=== PATIENT | male | born 1955 | race Caucasian/White ===

== ENCOUNTER 2018-10-24 22:12 | Inpatient (IN) | payer OTHER ==
[2018-10-24] MEDS ORDERED: Pantoprazole 40 MG Vial IVPUSH ONE (22:43)
--- NOTE | 2018-10-24 22:53 | EDM.PDOC ---
ED HPI GENERAL MEDICAL PROBLEM - General Chief Complaint: Gastrointestinal Problem Stated Complaint: [facility] Time Seen by Provider: 10/24/18 22:23 Source of Information: Reports: Patient, Family (), RN Notes Reviewed History Limitations: Reports: No Limitations - History of Present Illness INITIAL COMMENTS - FREE TEXT/NARRATIVE: The patient states that he felt bloated earlier today. He states that he went to the bathroom, but does not think he made it to the toilet. He was found passed out on the bathroom floor, with a large amount of dark bloody stool on the floor, although some blood was found in the toilet, as well, indicating that he may have passed out while on the toilet. The patient does not remember that. The patient's stated that the patient was in and out of consciousness at home. EMS reported that he was pale and diaphoretic. Here in the ED, the patient's initial BP was 86/53, although he is not tachycardic. He denies feeling nauseated, and denies having abdominal pain. No prior similar symptoms. The patient has a history of GERD, esophageal ulcers, and presumed gout, but is currently only taking iron, Crestor, and levothyroxine. He denies taking an NSAID, and is not on an antacid. The patient's PCP is Maryanne Pavon. - Related Data Allergies Allergy/AdvReac Type Severity Reaction Status Date / Time No Known Allergies Allergy Verified 10/24/18 22:20 Home Meds: Home Meds Famotidine [Pepcid] 20 mg PO DAILY 10/24/18 [History] Indomethacin [Indocin] 50 mg PO BID PRN 10/24/18 [History] Iron. 1 tab PO DAILY 10/24/18 [History] Levothyroxine Sodium 1 tab PO DAILY 10/24/18 [History] Rosuvastatin Calcium 5 mg PO DAILY 10/24/18 [History] Past Medical History Cardiovascular History: Reports: High Cholesterol Gastrointestinal History: Reports: Colon Polyp, GERD, Other (See Below) ( Esophageal ulcers) Genitourinary History: Reports: Chronic Renal Insuffiency, Renal Calculus Musculoskeletal History: Reports: Arthritis, Gout (suspected) Endocrine/Metabolic History: Reports: Hypothyroidism, Other (See Below) ( Prediabetes) - Past Surgical History HEENT Surgical History: Reports: Eye Surgery (bilateral lid lift), Oral Surgery (wisdom teeth extraction) GI Surgical History: Reports: Colonoscopy (x 2), EGD (x 4 or 5), Hernia, Abdominal (paraumbilical x 1, abdominal wall x 2) Social & Family History - Tobacco Use Smoking Status *Q: Never Smoker - Caffeine Use Caffeine Use: Reports: Coffee - Alcohol Use Alcohol Use History: Yes Alcohol Use Frequency: Socially - Recreational Drug Use Recreational Drug Use: No - Living Situation & Occupation Living situation: Reports: , with Spouse Occupation: Employed (Insurance) ED ROS GENERAL - Review of Systems Review Of Systems: ROS reveals no pertinent complaints other than HPI. ED EXAM, GI/ABD - Physical Exam Exam: See Below Exam Limited By: No Limitations General Appearance: Alert, WD/WN, No Apparent Distress Eyes: Bilateral: Normal Appearance, EOMI Ears: Normal External Exam, Hearing Grossly Normal Nose: Normal Inspection Throat/Mouth: Normal Inspection, Normal Lips, Normal Voice, No Airway Compromise Head: Atraumatic, Normocephalic Neck: Normal Inspection, Full Range of Motion Respiratory/Chest: No Respiratory Distress, Lungs Clear, Normal Breath Sounds, No Accessory Muscle Use Cardiovascular: Normal Peripheral Pulses, Regular Rate, Rhythm, No Gallop, No JVD, No Murmur, No Rub GI/Abdominal Exam: Normal Bowel Sounds, Soft, Non-Tender, No Organomegaly, No Distention, No Abnormal Bruit, No Mass, Other (Obese) (Male) Exam: Deferred Rectal (Males) Exam: Deferred Back Exam: Normal Inspection, Full Range of Motion, NT Extremities: Normal Inspection, Normal Range of Motion, Normal Capillary Refill Neurological: Alert, Oriented, Normal Cognition, No Motor/Sensory Deficits Psychiatric: Normal Affect Skin Exam: Warm, Dry, Intact, Normal Color, No Rash EKG INTERPRETATION EKG Date: 10/24/18 Time: 22:44 Rhythm: NSR Rate (Beats/Min): 63 Cornell: 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) P-Wave: Present QRS: Normal ST-T: Normal QT: Normal Comparison: NA - No Prior EKG Course - Vital Signs Last Recorded V/S: Last Vital Signs Temp 36.2 C 10/24/18 22:17 Pulse 67 10/24/18 22:17 Resp 16 10/24/18 22:17 BP 86/53 L 10/24/18 22:17 Pulse Ox 92 L 10/24/18 22:17 - Orders/Labs/Meds Orders: Active Orders 24 hr Category Date Time Status EKG Documentation Completion [RC] STAT Care 10/24/18 22:26 Active Chest 1V Frontal [CR] Stat Exams 10/24/18 22:50 Taken CBC WITH MANUAL DIFF [HEME] Stat Lab 10/24/18 22:40 Results FRESH FROZEN PLASMA [BBK] Stat Lab 10/24/18 22:40 Results RED BLOOD CELLS LP [BBK] Stat Lab 10/24/18 22:40 Results TYPE AND SCREEN [BBK] Stat Lab 10/24/18 22:40 Results Lactated Ringers [Ringers, Lactated] 1,000 ml Med 10/24/18 23:00 Active IV ASDIRECTED Pantoprazole [ProTONIX IV] 80 mg Med 10/24/18 22:45 Active Sodium Chloride 0.9% [Normal Saline] 100 ml IV Q10H Transfuse Fresh Frozen Plasma [COMM] Stat Ot 10/24/18 22:42 Ordered Transfuse PRBC [Transfuse Red Blood Cells] [COMM] Stat Oth 10/24/18 22:26 Ordered Medication Orders Pantoprazole Sodium 80 mg/ (Sodium Chloride) 100 mls @ 10 mls/hr IV Q10H [facility] Last Admin: 10/24/18 23:04 Dose: 8 mg/hr, 10 mls/hr Lactated Ringer's (Ringers, Lactated) 1,000 mls @ 150 mls/hr IV ASDIRECTED [facility] Last Admin: 10/24/18 23:03 Dose: 150 mls/hr Labs: Laboratory Tests 10/24/18 10/24/18 10/24/18 Range/Units 22:40 22:40 22:40 WBC 10.47 H (4.23-9.07) K/mm3 RBC 4.00 L (4.63-6.08) M/mm3 Hgb 11.2 L (13.7-17.5) gm/L Hct 34.4 L (40.1-51.0) % MCV 86.0 (79.0-92.2) fl MCH 28.0 (25.7-32.2) pg MCHC 32.6 (32.2-35.5) g/dl RDW Std Deviation 42.6 (35.1-43.9) fL Plt Count 357 H (163-337) K/mm3 MPV 9.8 (9.4-12.3) fl PT 12.6 H (9.5-12.1) SECONDS INR 1.16 APTT 21 L (24-31) SECONDS Sodium 142 (136-145) mEq/L Potassium 3.5 (3.5-5.1) mEq/L Chloride 108 H (98-107) mEq/L Carbon Dioxide 21 (21-32) mEq/L Anion Gap 16.5 H (5-15) BUN 34 H (7-18) mg/dL Creatinine 1.6 H (0.7-1.3) mg/dL Est Cr Clr Drug Dosing 53.41 mL/min Estimated GFR (MDRD) 44 (>60) mL/min BUN/Creatinine Ratio 21.3 H (14-18) Glucose 173 H (80-115) mg/dL Calcium 8.9 (8.5-10.1) mg/dL Magnesium 1.6 L (1.8-2.4) mg/dl Total Bilirubin 0.4 (0.2-1.0) mg/dL AST 17 (15-37) U/L ALT 23 (16-63) U/L Alkaline Phosphatase 45 L (46-116) U/L Troponin I < 0.017 (0.00-0.056) ng/mL Total Protein 6.0 L (6.4-8.2) g/dl Albumin 3.1 L (3.4-5.0) g/dl Globulin 2.9 gm/dL Albumin/Globulin Ratio 1.1 (1-2) Blood Type Gel Antibody Screen Crossmatch 10/24/18 Range/Units 22:40 WBC (4.23-9.07) K/mm3 RBC (4.63-6.08) M/mm3 Hgb (13.7-17.5) gm/L Hct (40.1-51.0) % MCV (79.0-92.2) fl MCH (25.7-32.2) pg MCHC (32.2-35.5) g/dl RDW Std Deviation (35.1-43.9) fL Plt Count (163-337) K/mm3 MPV (9.4-12.3) fl PT (9.5-12.1) SECONDS INR APTT (24-31) SECONDS Sodium (136-145) mEq/L Potassium (3.5-5.1) mEq/L Chloride (98-107) mEq/L Carbon Dioxide (21-32) mEq/L Anion Gap (5-15) BUN (7-18) mg/dL Creatinine (0.7-1.3) mg/dL Est Cr Clr Drug Dosing mL/min Estimated GFR (MDRD) (>60) mL/min BUN/Creatinine Ratio (14-18) Glucose (80-115) mg/dL Calcium (8.5-10.1) mg/dL Magnesium (1.8-2.4) mg/dl Total Bilirubin (0.2-1.0) mg/dL AST (15-37) U/L ALT (16-63) U/L Alkaline Phosphatase (46-116) U/L Troponin I (0.00-0.056) ng/mL Total Protein (6.4-8.2) g/dl Albumin (3.4-5.0) g/dl Globulin gm/dL Albumin/Globulin Ratio (1-2) Blood Type O POSITIVE Gel Antibody Screen Negative Crossmatch See Detail Meds: Medications Generic Name Dose Route Start Last Admin Trade Name Freq PRN Reason Stop Dose Admin Pantoprazole Sodium 80 mg/ 100 mls @ 10 mls/hr 10/24/18 22:45 10/24/18 23:04 Sodium Chloride IV 8 mg/hr Q10H DEE 10 mls/hr Administration 8 MG/HR Lactated Ringer's 1,000 mls @ 150 mls/hr 10/24/18 23:00 10/24/18 23:03 Ringers, Lactated IV 150 mls/hr ASDIRECTED DEE Administration Discontinued Medications Generic Name Dose Route Start Last Admin Trade Name Freq PRN Reason Stop Dose Admin Pantoprazole Sodium 80 mg 10/24/18 22:43 10/24/18 22:48 Protonix Iv IVPUSH 10/24/18 22:44 80 mg BOLUS ONE Administration - Re-Assessments/Exams Free Text/Narrative Re-Assessment/Exam: 10/24/18 22:50 Because the patient was and is so hypotensive, I am concerned that the patient has bled a considerable amount, therefore I have ordered 2 units of packed red blood cells, the first to be given as Type O, the second unit be typed and crossed, along with one unit of fresh frozen plasma. I have ordered Protonix 80 mg IVP, to be followed by 8 mg per hour drip. I have ordered lactated Ringer's at 150 mL per hour. Case then discussed with Dr. Aguila at 22:44. She does not feel that the patient needs emergency endoscopy unless there is evidence that he is still bleeding. So long as the patient is not complaining of nausea, she is not recommending a NG tube, however, if the patient develops nausea or hematemesis, then a NG tube should be placed. She asked that I order an imaging study to make sure that there is no free air. She agreed with the blood, fresh frozen plasma, Protonix, and IV fluid. She asked that we place the patient into observation under the Hospitalist, with her on consult. 10/24/18 23:26 Portable chest radiograph reviewed. Limited quality study, taken in expiration. The cardiac silhouette appears to be within normal limits. No pulmonary vascular congestion. No pleural effusions seen on this AP view. No focal infiltrate. No pneumothorax. No free air seen. Formal read per the Radiologist pending. 10/24/18 23:52 The patient's BUN/Cr has returned elevated at 34/1.6. It was 17/1.5 on 2017, indicating that the patient has chronic renal insufficiency. I will update his PMHx. The patient's blood glucose is elevated at 173. No prior evidence of hyperglycemia, indicating that the patient has prediabetes. I will update his PMHx. The patient's magnesium has returned mildly depressed at 1.6. I would like to give him a 1 g Mg-rider, however, his IVs are currently being used for the other transfusions, so this will have to wait. 10/25/18 00:02 Test results discussed with the patient, his , and 2 daughters, who are all at the bedside. Based on the patient's history, primarily, I strongly suspect that the patient has an upper GI bleed. I explained that I would prefer to place a NG tube, which not only can confirm that the patient has an upper GI bleed, but also help determine if he is continuing to bleed, or rebleeds, however, the patient declined a NG tube, at least at this time. The patient and his family are agreeable to the patient being admitted to the ICU. 10/25/18 00:[address] Mcclure at 00:04. He agreed to admit the patient to the ICU, and asked that I write bridge orders. Departure - Departure Time of Disposition: 00:08 Disposition: Admitted As Inpatient 66 Condition: Serious Clinical Impression: Upper GI bleed, Chronic renal insufficiency, Prediabetes, Hypomagnesemia, Hypotension - Discharge Information *PRESCRIPTION DRUG MONITORING PROGRAM REVIEWED*: Not Applicable *COPY OF PRESCRIPTION DRUG MONITORING REPORT IN PATIENT SUKI: Not Applicable Referrals: Maryanne Pavon PA-C [Primary Care Provider] - - My Orders Last 24 Hours: My Active Orders 10/24/18 22:26 EKG Documentation Completion [RC] STAT Transfuse PRBC [Transfuse Red Blood Cells] [COMM] Stat 10/24/18 22:40 CBC WITH MANUAL DIFF [HEME] Stat FRESH FROZEN PLASMA [BBK] Stat RED BLOOD CELLS LP [BBK] Stat TYPE AND SCREEN [BBK] Stat 10/24/18 22:42 Transfuse Fresh Frozen Plasma [COMM] Stat 10/24/18 22:45 Pantoprazole [ProTONIX IV] 80 mg Sodium Chloride 0.9% [Normal Saline] 100 ml IV Q10H 10/24/18 22:50 Chest 1V Frontal [CR] Stat 10/24/18 23:00 Lactated Ringers [Ringers, Lactated] 1,000 ml IV ASDIRECTED - Assessment/Plan Last 24 Hours: My Active Orders 10/24/18 22:26 EKG Documentation Completion [RC] STAT Transfuse PRBC [Transfuse Red Blood Cells] [COMM] Stat 10/24/18 22:40 CBC WITH MANUAL DIFF [HEME] Stat FRESH FROZEN PLASMA [BBK] Stat RED BLOOD CELLS LP [BBK] Stat TYPE AND SCREEN [BBK] Stat 10/24/18 22:42 Transfuse Fresh Frozen Plasma [COMM] Stat 10/24/18 22:45 Pantoprazole [ProTONIX IV] 80 mg Sodium Chloride 0.9% [Normal Saline] 100 ml IV Q10H 10/24/18 22:50 Chest 1V Frontal [CR] Stat 10/24/18 23:00 Lactated Ringers [Ringers, Lactated] 1,000 ml IV ASDIRECTED
[2018-10-24] MEDS: Lactated Ringers 1,000 ML IV SCH (23:03)
[2018-10-24] MEDS: Pantoprazole 80 MG in Sodium Chloride 0.9% 100 ML IV SCH (23:04)
[2018-10-25] MEDS: Lactated Ringers 1,000 ML IV SCH (06:08)
--- NOTE | 2018-10-25 08:07 | PCM.HP ---
H&P History of Present Illness - General Date of Service: 10/25/18 Admit Problem/Dx: Admission Diagnosis/Problem Admission Diagnosis/Problem GI bleed requiring more than 4 units of blood in 24 hours, ICU, or surgery Source of Information: Patient, Family, Provider, RN Notes Reviewed History Limitations: Reports: No Limitations - History of Present Illness Initial Comments - Free Text/Narative: This is a 63 yo white male with past medical hx/o HLD, GERD, PUD, Hx/o Gout, SAUD , CKD Unknown Stage, Hx/o Renal Stone, OA, Hypothyroidism, and Pre-Diabetes who comes in for evaluation of GI complaints after passing out while he was in the bathroom yesterday. He reports feeling bloated so he went to the bathroom to have a bowel movement. However he was found unconscious on the floor with a large amount of dark bloody stool on the floor but some was found on the toilet as well. The patient however does not recall the the ensuing event. Per ED notes , he was in and out of consciousness according to his . At the time EMS arrived at his place, he was pale and diaphoretic. His initial documented blood pressure upon presentation to ED was 86/53 mmHg. Patient reports no prior similar symptoms in the past. His initial work up in ED shows a CBC remarkable for WBC of 10.47, RBC of 4, Hgb of 11.2, Hct of 34.4, Platelet of 357, and Neutrophils of 65%. His coagulation studies show PT of 12.6, INR of 1.16, and aPTT of 21. His Chemistry is significant for Cl of 108, AG of 16.5, BUN of 34, Cr of 1.6, BS of 173, Mg of 1.6, Alk Phos of 1.6, Total Protein of 6 and Albumin of 3.1. His chest x-ray shows no acute abnormal findings. Patient was admitted overnight for further work up of acute GI bleed. He is full code. - Related Data Allergies/Adverse Reactions: Allergies Allergy/AdvReac Type Severity Reaction Status Date / Time No Known Allergies Allergy Verified 10/25/18 03:00 Home Medications: Home Meds Iron. 1 tab PO DAILY 10/24/18 [History] Levothyroxine Sodium 1 tab PO DAILY 10/24/18 [History] Rosuvastatin Calcium 5 mg PO DAILY 10/24/18 [History] Fish Oil/[place]-3 Fatty Acids [Fish Oil 1,000 MG] 1 cap PO DAILY 10/25/18 [ History] Flaxseed Oil [Flax Oil] 1 cap PO DAILY 10/25/18 [History] Past Medical History Cardiovascular History: Reports: High Cholesterol Gastrointestinal History: Reports: Colon Polyp, GERD, Other (See Below) ( Esophageal ulcers) Other Gastrointestinal History: ulcer Genitourinary History: Reports: Chronic Renal Insuffiency, Renal Calculus Musculoskeletal History: Reports: Arthritis, Gout (suspected) Endocrine/Metabolic History: Reports: Hypothyroidism, Other (See Below) ( Prediabetes) - Past Surgical History HEENT Surgical History: Reports: Eye Surgery (bilateral lid lift), Oral Surgery (wisdom teeth extraction) GI Surgical History: Reports: Colonoscopy (x 2), EGD (x 4 or 5), Hernia, Abdominal (paraumbilical x 1, abdominal wall x 2) Social & Family History - Tobacco Use Smoking Status *Q: Never Smoker Second Hand Smoke Exposure: No - Caffeine Use Caffeine Use: Reports: Coffee, Soda - Recreational Drug Use Recreational Drug Use: No - Living Situation & Occupation Living situation: Reports: , with Spouse Occupation: Employed (Insurance) H&P Review of Systems - Review of Systems: Review Of Systems: See Below General: Denies: Fever, Chills, Malaise, Weakness, Fatigue HEENT: Reports: No Symptoms. Denies: Other Pulmonary: Denies: Shortness of Breath, Hemoptysis Cardiovascular: Reports: Syncope, Blood Pressure Problem. Denies: Chest Pain, Palpitations, Dyspnea on Exertion, Lightheadedness Gastrointestinal: Reports: Black Stool, Bloody Stool, Hematochezia, Melena. Denies: Abdominal Pain, Constipation, Diarrhea, Decreased Appetite, Difficulty Swallowing, Distension, Flatus, Hematemesis, Nausea, Stool Incontinence Genitourinary: Denies: No Symptoms, Frequency Musculoskeletal: Reports: No Symptoms Skin: Reports: Pallor, Other (diaphoretic). Denies: Cyanosis, Jaundice, Mottled , Diaphoresis, Bruising, Pruritis, Rash, Change in Color Psychiatric: Denies: Confusion, Depression, Mood Lability, Anxiety, Agitation, Hallucinations, Suicidal Ideation, Homicidal Ideation Neurological: Reports: Syncope. Denies: Confusion, Dizziness, Headache, Numbness, Seizure, Difficulty Walking, Weakness, Gait Disturbance Hematologic/Lymphatic: Reports: Anemia Immunologic: Reports: No Symptoms Exam - Exam Exam: See Below - Vital Signs Vital Signs: Last Vital Signs Temp 36.9 C 10/25/18 04:00 Pulse 63 10/25/18 04:01 Resp 20 10/25/18 04:01 BP 145/86 H 10/25/18 04:01 Pulse Ox 96 10/25/18 04:01 Weight: 99.79 kg - Exam General: Alert, Oriented, Cooperative. No: Mild Distress HEENT: Conjunctiva Clear, EACs Clear, EOMI, Hearing Intact, Mucosa Moist & [place] , Nares Patent, Normal Nasal Septum, Posterior Pharynx Clear, Pupils Equal, Pupils Reactive Neck: Supple, Trachea Midline Lungs: Clear to Auscultation, Normal Respiratory Effort Cardiovascular: Regular Rate, Regular Rhythm GI/Abdominal Exam: Normal Bowel Sounds, Soft, Non-Tender, No Organomegaly, No Distention, No Abnormal Bruit, No Mass (Male) Exam: Deferred Rectal (Males) Exam: Deferred Back Exam: Normal Inspection, Full Range of Motion Extremities: Normal Inspection, Normal Range of Motion, Non-Tender, No Pedal Edema, Normal Capillary Refill Peripheral Pulses: 3+: Posterior Tibial (L), Posterior Tibial (R), Dorsalis Pedis (L), Dorsalis Pedis (R) Skin: Warm, Dry, Intact Neuro Extensive - Mental Status: Oriented x3, Normal Cognition, Memory Intact Neuro Extensive - Motor, Sensory, Reflexes: CN II-XII Intact, Normal Gait Psychiatric: Alert, Normal Affect, Normal Mood - Patient Data Lab Results Last 24 hrs: Laboratory Results - last 24 hr 10/24/18 10/24/18 10/24/18 Range/Units 22:40 22:40 22:40 WBC 10.47 H (4.23-9.07) K/mm3 RBC 4.00 L (4.63-6.08) M/mm3 Hgb 11.2 L (13.7-17.5) gm/L Hct 34.4 L (40.1-51.0) % MCV 86.0 (79.0-92.2) fl MCH 28.0 (25.7-32.2) pg MCHC 32.6 (32.2-35.5) g/dl RDW Std Deviation 42.6 (35.1-43.9) fL Plt Count 357 H (163-337) K/mm3 MPV 9.8 (9.4-12.3) fl Neut % (Auto) (34.0-67.9) % Lymph % (Auto) (21.8-53.1) % Larue % (Auto) (5.3-12.2) % Eos % (Auto) (0.8-7.0) Baso % (Auto) (0.1-1.2) % Neut # (Auto) (1.78-5.38) K/mm3 Lymph # (Auto) (1.32-3.57) K/mm3 Larue # (Auto) (0.30-0.82) K/mm3 Eos # (Auto) (0.04-0.54) K/mm3 Baso # (Auto) (0.01-0.08) K/mm3 Neutrophils % (Manual) 65 H (40-60) % Band Neutrophils % 0 (0-10) % Lymphocytes % (Manual) 28 (20-40) % Atypical Lymphs % 0 % Monocytes % (Manual) 4 (2-10) % Eosinophils % (Manual) 3 (0.8-7.0) % Basophils % (Manual) 0 L (0.2-1.2) Platelet Estimate Increased Plt Morphology Comment Normal RBC Morph Comment Normal PT 12.6 H (9.5-12.1) SECONDS INR 1.16 APTT 21 L (24-31) SECONDS Sodium 142 (136-145) mEq/L Potassium 3.5 (3.5-5.1) mEq/L Chloride 108 H (98-107) mEq/L Carbon Dioxide 21 (21-32) mEq/L Anion Gap 16.5 H (5-15) BUN 34 H (7-18) mg/dL Creatinine 1.6 H (0.7-1.3) mg/dL Est Cr Clr Drug Dosing 53.41 mL/min Estimated GFR (MDRD) 44 (>60) mL/min BUN/Creatinine Ratio 21.3 H (14-18) Glucose 173 H (80-115) mg/dL Calcium 8.9 (8.5-10.1) mg/dL Magnesium 1.6 L (1.8-2.4) mg/dl Total Bilirubin 0.4 (0.2-1.0) mg/dL AST 17 (15-37) U/L ALT 23 (16-63) U/L Alkaline Phosphatase 45 L (46-116) U/L Troponin I < 0.017 (0.00-0.056) ng/mL Total Protein 6.0 L (6.4-8.2) g/dl Albumin 3.1 L (3.4-5.0) g/dl Globulin 2.9 gm/dL Albumin/Globulin Ratio 1.1 (1-2) Blood Type Gel Antibody Screen Crossmatch 10/24/18 10/25/18 10/25/18 Range/Units 22:40 04:00 06:07 WBC 11.90 H 11.36 H (4.23-9.07) K/mm3 RBC 4.43 L 4.35 L (4.63-6.08) M/mm3 Hgb 12.5 L 12.3 L (13.7-17.5) gm/L Hct 37.6 L 36.8 L (40.1-51.0) % MCV 84.9 84.6 (79.0-92.2) fl MCH 28.2 28.3 (25.7-32.2) pg MCHC 33.2 33.4 (32.2-35.5) g/dl RDW Std Deviation 43.2 43.0 (35.1-43.9) fL Plt Count 308 306 (163-337) K/mm3 MPV 9.7 9.7 (9.4-12.3) fl Neut % (Auto) 78.9 H (34.0-67.9) % Lymph % (Auto) 12.5 L (21.8-53.1) % Larue % (Auto) 7.9 (5.3-12.2) % Eos % (Auto) 0.1 L (0.8-7.0) Baso % (Auto) 0.3 (0.1-1.2) % Neut # (Auto) 8.97 H (1.78-5.38) K/mm3 Lymph # (Auto) 1.42 (1.32-3.57) K/mm3 Larue # (Auto) 0.90 H (0.30-0.82) K/mm3 Eos # (Auto) 0.01 L (0.04-0.54) K/mm3 Baso # (Auto) 0.03 (0.01-0.08) K/mm3 Neutrophils % (Manual) (40-60) % Band Neutrophils % (0-10) % Lymphocytes % (Manual) (20-40) % Atypical Lymphs % % Monocytes % (Manual) (2-10) % Eosinophils % (Manual) (0.8-7.0) % Basophils % (Manual) (0.2-1.2) Platelet Estimate Plt Morphology Comment RBC Morph Comment PT (9.5-12.1) SECONDS INR APTT (24-31) SECONDS Sodium (136-145) mEq/L Potassium (3.5-5.1) mEq/L Chloride (98-107) mEq/L Carbon Dioxide (21-32) mEq/L Anion Gap (5-15) BUN (7-18) mg/dL Creatinine (0.7-1.3) mg/dL Est Cr Clr Drug Dosing mL/min Estimated GFR (MDRD) (>60) mL/min BUN/Creatinine Ratio (14-18) Glucose (80-115) mg/dL Calcium (8.5-10.1) mg/dL Magnesium (1.8-2.4) mg/dl Total Bilirubin (0.2-1.0) mg/dL AST (15-37) U/L ALT (16-63) U/L Alkaline Phosphatase (46-116) U/L Troponin I (0.00-0.056) ng/mL Total Protein (6.4-8.2) g/dl Albumin (3.4-5.0) g/dl Globulin gm/dL Albumin/Globulin Ratio (1-2) Blood Type O POSITIVE Gel Antibody Screen Negative Crossmatch See Detail 10/25/18 Range/Units 06:07 WBC (4.23-9.07) K/mm3 RBC (4.63-6.08) M/mm3 Hgb (13.7-17.5) gm/L Hct (40.1-51.0) % MCV (79.0-92.2) fl MCH (25.7-32.2) pg MCHC (32.2-35.5) g/dl RDW Std Deviation (35.1-43.9) fL Plt Count (163-337) K/mm3 MPV (9.4-12.3) fl Neut % (Auto) (34.0-67.9) % Lymph % (Auto) (21.8-53.1) % Larue % (Auto) (5.3-12.2) % Eos % (Auto) (0.8-7.0) Baso % (Auto) (0.1-1.2) % Neut # (Auto) (1.78-5.38) K/mm3 Lymph # (Auto) (1.32-3.57) K/mm3 Larue # (Auto) (0.30-0.82) K/mm3 Eos # (Auto) (0.04-0.54) K/mm3 Baso # (Auto) (0.01-0.08) K/mm3 Neutrophils % (Manual) (40-60) % Band Neutrophils % (0-10) % Lymphocytes % (Manual) (20-40) % Atypical Lymphs % % Monocytes % (Manual) (2-10) % Eosinophils % (Manual) (0.8-7.0) % Basophils % (Manual) (0.2-1.2) Platelet Estimate Plt Morphology Comment RBC Morph Comment PT (9.5-12.1) SECONDS INR APTT (24-31) SECONDS Sodium 139 (136-145) mEq/L Potassium 4.2 (3.5-5.1) mEq/L Chloride 107 (98-107) mEq/L Carbon Dioxide 20 L (21-32) mEq/L Anion Gap 16.2 H (5-15) BUN 29 H (7-18) mg/dL Creatinine 1.3 (0.7-1.3) mg/dL Est Cr Clr Drug Dosing 65.73 mL/min Estimated GFR (MDRD) 56 (>60) mL/min BUN/Creatinine Ratio 22.3 H (14-18) Glucose 112 (80-115) mg/dL Calcium 9.5 (8.5-10.1) mg/dL Magnesium (1.8-2.4) mg/dl Total Bilirubin (0.2-1.0) mg/dL AST (15-37) U/L ALT (16-63) U/L Alkaline Phosphatase (46-116) U/L Troponin I (0.00-0.056) ng/mL Total Protein (6.4-8.2) g/dl Albumin (3.4-5.0) g/dl Globulin gm/dL Albumin/Globulin Ratio (1-2) Blood Type Gel Antibody Screen Crossmatch Result Diagrams: 10/25/18 06:07 10/25/18 06:07 Problem List Initiated/Reviewed/Updated: Yes Orders Last 24hrs: Active Orders 24 hr Category Date Time Status Patient Status [ADT] Routine ADT 10/25/18 00:21 Active Bedrest [RC] ASDIRECTED Care 10/25/18 03:03 Active Notify Provider Consults [RC] ASDIRECTED Care 10/25/18 03:16 Active Consult to Physician [CONS] Routine Cons 10/25/18 03:13 Active NPO [Nothing Per Oral Diet] [DIET] Diet 10/25/18 Breakfast Active Chest 1V Frontal [CR] Stat Exams 10/24/18 22:50 Taken Lactated Ringers [Ringers, Lactated] 1,000 ml Med 10/24/18 23:00 Active IV ASDIRECTED Pantoprazole [ProTONIX IV] 80 mg Med 10/24/18 22:45 Active Sodium Chloride 0.9% [Normal Saline] 100 ml IV Q10H Transfuse Fresh Frozen Plasma [COMM] Stat Oth 10/24/18 22:42 Ordered Transfuse PRBC [Transfuse Red Blood Cells] [COMM] Stat Oth 10/24/18 22:26 Ordered Code Status [Resuscitation Status] Routine Resus Stat 10/25/18 03:03 Ordered Medication Orders Pantoprazole Sodium 80 mg/ (Sodium Chloride) 100 mls @ 10 mls/hr IV Q10H DEE Last Admin: 10/24/18 23:04 Dose: 8 mg/hr, 10 mls/hr Lactated Ringer's (Ringers, Lactated) 1,000 mls @ 150 mls/hr IV ASDIRECTED DEE Last Admin: 10/25/18 06:08 Dose: 150 mls/hr Infusion: 10/25/18 05:44 Dose: 150 mls/hr Admin: 10/24/18 23:03 Dose: 150 mls/hr Assessment/Plan Comment:: Assessment/Plan: Acute: Acute Gastrointestinal Bleed - Suspect 2/2 PUD given his hx/o Esophageal Ulcers - Risk Factors: Hx/o GERD, Gout and Esophageals Ulcers - Used to be on PPI was taken off by GI last July and now on H2B - H2B does not seem to help per patient - He denies being on ASA or taking NSAIDs; however Indomethacin is listed on his MAR as home medication - Hgb on 11.2 on admission - Currently on protonic drip - Admitted overnight by ED provider to ICU - Dr. Duron consulted for further evaluation this AM Symptomatic Anemia - Syncope and Hypotensive; he is now alert/awake/reasonable and able to engage - BP of 86/53, 93/53, 99/58, and 92/57 mmHg; most recent BP shows 144/84 mmHg - Hgb of 11.2-12.5 (baseline 15.8 01/23/2016); now 12.3 grams - S/p 2 units of PRBC and 1 units of FFP overnight - No CT scan ordered in ED Renal Insufficiency - Has Hx/o CKD with Unknown Stage - BUN 34 and Cr 1.6; now at baseline Cr 1.3 - 2/2 Volume Loss from GI Bleed - Improved with volume resuscitation Hypomagnesemia - Mg 1.6 - Likely 2/2 GI Loss and from being NPO status - Replete and monitor Chronic: HLD GERD PUD Hx/o Gout SAUD CKD Unknown Stage Hx/o Renal Stone OA Hypothyroidism Pre-Diabetes Plan: Admitted to ICU overnight Routine AM Labs Hold Home Meds H. Pylori screening if agreeable Dr. Duron for further eval IVF fluids Continue PPI PO status as per Dr. Duron Code status: 1
[2018-10-25] MEDS ORDERED: Ondansetron 4 MG/2 ML SDV IV PRN (08:20)
[2018-10-25] MEDS ORDERED: Albuterol/Ipratropium 3.0-0.5 MG/3 ML Neb Soln NEB PRN (08:20)
[2018-10-25] MEDS ORDERED: Promethazine 6.25 MG in Sodium Chloride 0.9% 50 ML IV PRN (08:20)
[2018-10-25] MEDS ORDERED: hydrALAZINE 20 MG/ML SDV IVPUSH PRN (08:20)
[2018-10-25] MEDS ORDERED: Metoprolol Tartrate 5 MG/5 ML SDV IVPUSH PRN (08:20)
[2018-10-25] MEDS ORDERED: Acetaminophen 650 MG Supp RECTAL PRN (08:20)
[2018-10-25] MEDS ORDERED: LORazepam 2 MG/ML SDV IV PRN (08:20)
[2018-10-25] MEDS ORDERED: HYDROmorphone 1 MG/ML Syringe IVPUSH PRN (08:20)
[2018-10-25] MEDS ORDERED: EPINEPHrine 1 MG/ML SDV ONE (08:51)
[2018-10-25] MEDS ORDERED: Sodium Chloride 0.9% 50 ML SDV ONE (08:51)
--- NOTE | 2018-10-25 09:05 | PCM.PREANE ---
Preanesthetic Assessment - Anesthesia/Transfusion/Family Hx Anesthesia History: Prior Anesthesia Without Reaction Family History of Anesthesia Reaction: No Transfusion History: Prior Transfusion Without Reaction Intubation History: Unknown - Review of Systems General: No Symptoms Pulmonary: No Symptoms Cardiovascular: No Symptoms Gastrointestinal: No Symptoms (GERD) Neurological: Headache, Syncope (yesterday with bloody stool noted) Other: Reports: None (Renal insufficiency), Thyroid Problems (hypothyroid) - Physical Assessment NPO Status Date: 10/24/18 NPO Status Time: 13:30 Pulse: 67 O2 Sat by Pulse Oximetry: 97 Respiratory Rate: 25 Blood Pressure: 145/86 Temperature: 37.1 C Vital Signs: Last Vital Signs Temp 37.2 C 10/25/18 08:00 Pulse 67 10/25/18 08:00 Resp 25 H 10/25/18 08:00 BP 138/80 10/25/18 08:00 Pulse Ox 97 10/25/18 08:00 Height: 1.85 m Weight: 99.79 kg ASA Class: 2E Mental Status: Alert & Oriented x3 Airway Class: Mallampati = 2 Dentition: Reports: Normal Dentition, Caries Thyro-Mental Finger Breadths: 3 Mouth Opening Finger Breadths: 3 Lungs: Clear to Auscultation, Normal Respiratory Effort Cardiovascular: Regular Rate, Regular Rhythm, No Murmurs - Lab Values: Laboratory Last Values WBC 11.36 K/mm3 (4.23-9.07) H 10/25/18 06:07 RBC 4.35 M/mm3 (4.63-6.08) L 10/25/18 06:07 Hgb 12.3 gm/L (13.7-17.5) L 10/25/18 06:07 Hct 36.8 % (40.1-51.0) L 10/25/18 06:07 MCV 84.6 fl (79.0-92.2) 10/25/18 06:07 MCH 28.3 pg (25.7-32.2) 10/25/18 06:07 MCHC 33.4 g/dl (32.2-35.5) 10/25/18 06:07 RDW Std Deviation 43.0 fL (35.1-43.9) 10/25/18 06:07 Plt Count 306 K/mm3 (163-337) 10/25/18 06:07 MPV 9.7 fl (9.4-12.3) 10/25/18 06:07 Neut % (Auto) 78.9 % (34.0-67.9) H 10/25/18 06:07 Lymph % (Auto) 12.5 % (21.8-53.1) L 10/25/18 06:07 [place] % (Auto) 7.9 % (5.3-12.2) 10/25/18 06:07 Eos % (Auto) 0.1 (0.8-7.0) L 10/25/18 06:07 Baso % (Auto) 0.3 % (0.1-1.2) 10/25/18 06:07 Neut # (Auto) 8.97 K/mm3 (1.78-5.38) H 10/25/18 06:07 Lymph # (Auto) 1.42 K/mm3 (1.32-3.57) 10/25/18 06:07 [place] # (Auto) 0.90 K/mm3 (0.30-0.82) H 10/25/18 06:07 Eos # (Auto) 0.01 K/mm3 (0.04-0.54) L 10/25/18 06:07 Baso # (Auto) 0.03 K/mm3 (0.01-0.08) 10/25/18 06:07 Neutrophils % (Manual) 65 % (40-60) H 10/24/18 22:40 Band Neutrophils % 0 % (0-10) 10/24/18 22:40 Lymphocytes % (Manual) 28 % (20-40) 10/24/18 22:40 Atypical Lymphs % 0 % 10/24/18 22:40 Monocytes % (Manual) 4 % (2-10) 10/24/18 22:40 Eosinophils % (Manual) 3 % (0.8-7.0) 10/24/18 22:40 Basophils % (Manual) 0 (0.2-1.2) L 10/24/18 22:40 Platelet Estimate Increased 10/24/18 22:40 Plt Morphology Comment Normal 10/24/18 22:40 RBC Morph Comment Normal 10/24/18 22:40 PT 12.6 SECONDS (9.5-12.1) H 10/24/18 22:40 INR 1.16 10/24/18 22:40 APTT 21 SECONDS (24-31) L 10/24/18 22:40 Sodium 139 mEq/L (136-145) 10/25/18 06:07 Potassium 4.2 mEq/L (3.5-5.1) 10/25/18 06:07 Chloride 107 mEq/L (98-107) 10/25/18 06:07 Carbon Dioxide 20 mEq/L (21-32) L 10/25/18 06:07 Anion Gap 16.2 (5-15) H 10/25/18 06:07 BUN 29 mg/dL (7-18) H 10/25/18 06:07 Creatinine 1.3 mg/dL (0.7-1.3) 10/25/18 06:07 Est Cr Clr Drug Dosing 65.73 mL/min 10/25/18 06:07 Estimated GFR (MDRD) 56 mL/min (>60) 10/25/18 06:07 BUN/Creatinine Ratio 22.3 (14-18) H 10/25/18 06:07 Glucose 112 mg/dL (80-115) 10/25/18 06:07 Calcium 9.5 mg/dL (8.5-10.1) 10/25/18 06:07 Magnesium 1.6 mg/dl (1.8-2.4) L 10/24/18 22:40 Total Bilirubin 0.4 mg/dL (0.2-1.0) 10/24/18 22:40 AST 17 U/L (15-37) 10/24/18 22:40 ALT 23 U/L (16-63) 10/24/18 22:40 Alkaline Phosphatase 45 U/L (46-116) L 10/24/18 22:40 Troponin I < 0.017 ng/mL (0.00-0.056) 10/24/18 22:40 Total Protein 6.0 g/dl (6.4-8.2) L 10/24/18 22:40 Albumin 3.1 g/dl (3.4-5.0) L 10/24/18 22:40 Globulin 2.9 gm/dL 10/24/18 22:40 Albumin/Globulin Ratio 1.1 (1-2) 10/24/18 22:40 Blood Type O POSITIVE 10/24/18 22:40 Gel Antibody Screen Negative 10/24/18 22:40 Crossmatch See Detail 10/24/18 22:40 Above labs reviewed and noted and within acceptable ranges to proceed with scheduled procedure. - Imaging/EKG Impressions: EKG: NSR rate=63 CXR: unremarkable - Allergies Allergies/Adverse Reactions: Allergies Allergy/AdvReac Type Severity Reaction Status Date / Time No Known Allergies Allergy Verified 10/25/18 03:00 - Anesthesia Plan Pre-Op Medication Ordered: None - Acknowledgements Anesthesia Type Planned: MAC Pt an Appropriate Candidate for the Planned Anesthesia: Yes Alternatives and Risks of Anesthesia Discussed w Pt/Guardian: Yes Pt/Guardian Understands and Agrees with Anesthesia Plan: Yes PreAnesthesia Questionnaire Cardiovascular History: Reports: High Cholesterol Gastrointestinal History: Reports: Colon Polyp, GERD, Other (See Below) ( Esophageal ulcers) Other Gastrointestinal History: ulcer Genitourinary History: Reports: Chronic Renal Insuffiency, Renal Calculus Musculoskeletal History: Reports: Arthritis, Gout (suspected) Endocrine/Metabolic History: Reports: Hypothyroidism, Other (See Below) ( Prediabetes) - Past Surgical History HEENT Surgical History: Reports: Eye Surgery (bilateral lid lift), Oral Surgery (wisdom teeth extraction) GI Surgical History: Reports: Colonoscopy (x 2), EGD (x 4 or 5), Hernia, Abdominal (paraumbilical x 1, abdominal wall x 2) - SUBSTANCE USE Smoking Status *Q: Never Smoker Tobacco Use Within Last Twelve Months: No Second Hand Smoke Exposure: No Recreational Drug Use History: No - HOME MEDS Home Medications: Home Meds Iron. 1 tab PO DAILY 10/24/18 [History] Levothyroxine Sodium 1 tab PO DAILY 10/24/18 [History] Rosuvastatin Calcium 5 mg PO DAILY 10/24/18 [History] Fish Oil/[place]-3 Fatty Acids [Fish Oil 1,000 MG] 1 cap PO DAILY 10/25/18 [ History] Flaxseed Oil [Flax Oil] 1 cap PO DAILY 10/25/18 [History] - CURRENT (IN HOUSE) MEDS Current Meds: Current Medications Acetaminophen (Tylenol) 650 mg RECTAL Q4H PRN PRN Reason: Pain (mild 1-3) Albuterol/Ipratropium (Duoneb 3.0-0.5 Mg/3 Ml) 3 ml NEB Q4H PRN PRN Reason: Shortness Of Breath/wheezing Hydralazine HCl (Apresoline) 20 mg IVPUSH Q4H PRN PRN Reason: Hypertension Hydromorphone HCl (Dilaudid) 0.25 mg IVPUSH Q2H PRN PRN Reason: Pain (severe 7-10) Pantoprazole Sodium 80 mg/ (Sodium Chloride) 100 mls @ 10 mls/hr IV Q10H [facility] Last Admin: 10/24/18 23:04 Dose: 8 mg/hr, 10 mls/hr Lactated Ringer's (Ringers, Lactated) 1,000 mls @ 150 mls/hr IV ASDIRECTED [facility] Last Admin: 10/25/18 06:08 Dose: 150 mls/hr Promethazine HCl 6.25 mg/ (Sodium Chloride) 50.25 mls @ 100 mls/hr IV Q6H PRN PRN Reason: Nausea/Vomiting Lorazepam (Ativan) 0.25 mg IV Q6H PRN PRN Reason: Anxiety Metoprolol Tartrate (Lopressor) 5 mg IVPUSH Q4H PRN PRN Reason: Tachycardia Ondansetron HCl (Zofran) 4 mg IV Q6H PRN PRN Reason: Nausea/Vomiting Potassium Chloride (Pharmacy To Dose - Potassium Replacement) 0 dose .XX ASDIRECTED PRN PRN Reason: RX TO WATCH K Discontinued Medications Epinephrine HCl (Adrenalin) Confirm Administered Dose 2 mg .ROUTE .STK-MED ONE Stop: 10/25/18 08:52 Magnesium Sulfate/Dextrose 1 (gm/ Premix) 100 mls @ 100 mls/hr IV ONETIME ONE Stop: 10/25/18 04:59 Last Admin: 10/25/18 03:53 Dose: 100 mls/hr Pantoprazole Sodium (Protonix Iv) 80 mg IVPUSH BOLUS ONE Stop: 10/24/18 22:44 Last Admin: 10/24/18 22:48 Dose: 80 mg Sodium Chloride (Normal Saline) Confirm Administered Dose 50 ml .ROUTE .STK-MED ONE Stop: 10/25/18 08:52
[2018-10-25] MEDS ORDERED: Lidocaine 1% 6 ML ONE (09:10)
[2018-10-25] MEDS ORDERED: Midazolam 1 MG/ML 2 ML SDV ONE (09:11)
[2018-10-25] MEDS ORDERED: Propofol 200 MG/20 ML SDV ONE (09:11)
[2018-10-25] MEDS ORDERED: fentaNYL 100 MCG/2 ML SDV ONE (09:11)
--- NOTE | 2018-10-25 09:48 | PCM.CONS ---
H&P History of Present Illness - General Date of Service: 10/25/18 Admit Problem/Dx: Admission Diagnosis/Problem Admission Diagnosis/Problem GI bleed requiring more than 4 units of blood in 24 hours, ICU, or surgery Source of Information: Patient, Provider History Limitations: Reports: No Limitations - History of Present Illness Initial Comments - Free Text/Narative: The patient is a 62 y/o male who presents with melena and syncopal episodes. He reports feeling "indigestion" last evening, as well as some nausea. He had a small non-bloody, nonbilious emesis followed by melena. He reports having multiple episodes of syncope during this time, each lasting a few seconds. He was brought to the ED by ambulance where he was evaluated and admitted. He was found to have hypotension with a lower hemoglobin level. Chest x-ray was performed that did not reveal any free air. The patient has a history of ulcerations in his pharynx/upper esophagus that have caused problems with dysphagia in the past. He was recently evaluated with EGD (about 3-4 months ago), which did not reveal any significant abnormalities. He was switched from his PPI to Famotidine, after which he has not felt to have good control over his dyspepsia symptoms. In addition, he recently got back from vacation where he drank more alcohol than he usually does. He also completed a course of indomethacin about 1 month ago for gouty symptoms. - Related Data Allergies/Adverse Reactions: Allergies Allergy/AdvReac Type Severity Reaction Status Date / Time No Known Allergies Allergy Verified 10/25/18 03:00 Home Medications: Home Meds Iron. 1 tab PO DAILY 10/24/18 [History] Levothyroxine Sodium 1 tab PO DAILY 10/24/18 [History] Rosuvastatin Calcium 5 mg PO DAILY 10/24/18 [History] Fish Oil/[place]-3 Fatty Acids [Fish Oil 1,000 MG] 1 cap PO DAILY 10/25/18 [ History] Flaxseed Oil [Flax Oil] 1 cap PO DAILY 10/25/18 [History] Past Medical History Cardiovascular History: Reports: High Cholesterol Gastrointestinal History: Reports: Colon Polyp, GERD, Other (See Below) ( Esophageal ulcers) Other Gastrointestinal History: ulcer Genitourinary History: Reports: Chronic Renal Insuffiency, Renal Calculus Musculoskeletal History: Reports: Arthritis, Gout (suspected) Endocrine/Metabolic History: Reports: Hypothyroidism, Other (See Below) ( Prediabetes) - Past Surgical History HEENT Surgical History: Reports: Eye Surgery (bilateral lid lift), Oral Surgery (wisdom teeth extraction) GI Surgical History: Reports: Colonoscopy (x 2), EGD (x 4 or 5), Hernia, Abdominal (paraumbilical x 1, abdominal wall x 2) Social & Family History - Family History Musculoskeletal: Reports: RA - Tobacco Use Smoking Status *Q: Never Smoker Second Hand Smoke Exposure: No - Caffeine Use Caffeine Use: Reports: Coffee, Soda - Recreational Drug Use Recreational Drug Use: No - Living Situation & Occupation Living situation: Reports: , with Spouse Occupation: Employed (Insurance) H&P Review of Systems - Review of Systems: Review Of Systems: See Below General: Reports: Diaphoresis HEENT: Reports: No Symptoms Pulmonary: Reports: No Symptoms Cardiovascular: Reports: No Symptoms Gastrointestinal: Reports: Decreased Appetite, Melena, Nausea. Denies: Hematemesis Genitourinary: Reports: No Symptoms Musculoskeletal: Reports: No Symptoms Skin: Reports: No Symptoms Psychiatric: Reports: No Symptoms Neurological: Reports: No Symptoms Hematologic/Lymphatic: Reports: No Symptoms Exam - Exam Exam: See Below - Vital Signs Vital Signs: Last Vital Signs Temp 37.1 C 10/25/18 09:04 Pulse 67 10/25/18 09:04 Resp 25 H 10/25/18 09:04 BP 145/86 H 10/25/18 09:04 Pulse Ox 97 10/25/18 09:04 Weight: 99.79 kg - Exam Quality Assessment: No: Supplemental Oxygen General: Alert, Oriented HEENT: Conjunctiva Clear, EOMI Neck: Supple Lungs: Clear to Auscultation, Normal Respiratory Effort Cardiovascular: Regular Rate, Regular Rhythm GI/Abdominal Exam: Normal Bowel Sounds, Soft, Non-Tender, No Distention Peripheral Pulses: 2+: Dorsalis Pedis (L), Dorsalis Pedis (R) Skin: Warm, Dry, Intact Neurological: Cranial Nerves Intact Neuro Extensive - Mental Status: Alert, Oriented x3, Normal Mood/Affect - Patient Data Lab Results Last 24 hrs: Laboratory Results - last 24 hr 10/24/18 10/24/18 10/24/18 Range/Units 22:40 22:40 22:40 WBC 10.47 H (4.23-9.07) K/mm3 RBC 4.00 L (4.63-6.08) M/mm3 Hgb 11.2 L (13.7-17.5) gm/L Hct 34.4 L (40.1-51.0) % MCV 86.0 (79.0-92.2) fl MCH 28.0 (25.7-32.2) pg MCHC 32.6 (32.2-35.5) g/dl RDW Std Deviation 42.6 (35.1-43.9) fL Plt Count 357 H (163-337) K/mm3 MPV 9.8 (9.4-12.3) fl Neut % (Auto) (34.0-67.9) % Lymph % (Auto) (21.8-53.1) % [place] % (Auto) (5.3-12.2) % Eos % (Auto) (0.8-7.0) Baso % (Auto) (0.1-1.2) % Neut # (Auto) (1.78-5.38) K/mm3 Lymph # (Auto) (1.32-3.57) K/mm3 [place] # (Auto) (0.30-0.82) K/mm3 Eos # (Auto) (0.04-0.54) K/mm3 Baso # (Auto) (0.01-0.08) K/mm3 Neutrophils % (Manual) 65 H (40-60) % Band Neutrophils % 0 (0-10) % Lymphocytes % (Manual) 28 (20-40) % Atypical Lymphs % 0 % Monocytes % (Manual) 4 (2-10) % Eosinophils % (Manual) 3 (0.8-7.0) % Basophils % (Manual) 0 L (0.2-1.2) Platelet Estimate Increased Plt Morphology Comment Normal RBC Morph Comment Normal PT 12.6 H (9.5-12.1) SECONDS INR 1.16 APTT 21 L (24-31) SECONDS Sodium 142 (136-145) mEq/L Potassium 3.5 (3.5-5.1) mEq/L Chloride 108 H (98-107) mEq/L Carbon Dioxide 21 (21-32) mEq/L Anion Gap 16.5 H (5-15) BUN 34 H (7-18) mg/dL Creatinine 1.6 H (0.7-1.3) mg/dL Est Cr Clr Drug Dosing 53.41 mL/min Estimated GFR (MDRD) 44 (>60) mL/min BUN/Creatinine Ratio 21.3 H (14-18) Glucose 173 H (80-115) mg/dL Calcium 8.9 (8.5-10.1) mg/dL Magnesium 1.6 L (1.8-2.4) mg/dl Total Bilirubin 0.4 (0.2-1.0) mg/dL AST 17 (15-37) U/L ALT 23 (16-63) U/L Alkaline Phosphatase 45 L (46-116) U/L Troponin I < 0.017 (0.00-0.056) ng/mL Total Protein 6.0 L (6.4-8.2) g/dl Albumin 3.1 L (3.4-5.0) g/dl Globulin 2.9 gm/dL Albumin/Globulin Ratio 1.1 (1-2) Blood Type Gel Antibody Screen Crossmatch 10/24/18 10/25/18 10/25/18 Range/Units 22:40 04:00 06:07 WBC 11.90 H 11.36 H (4.23-9.07) K/mm3 RBC 4.43 L 4.35 L (4.63-6.08) M/mm3 Hgb 12.5 L 12.3 L (13.7-17.5) gm/L Hct 37.6 L 36.8 L (40.1-51.0) % MCV 84.9 84.6 (79.0-92.2) fl MCH 28.2 28.3 (25.7-32.2) pg MCHC 33.2 33.4 (32.2-35.5) g/dl RDW Std Deviation 43.2 43.0 (35.1-43.9) fL Plt Count 308 306 (163-337) K/mm3 MPV 9.7 9.7 (9.4-12.3) fl Neut % (Auto) 78.9 H (34.0-67.9) % Lymph % (Auto) 12.5 L (21.8-53.1) % [place] % (Auto) 7.9 (5.3-12.2) % Eos % (Auto) 0.1 L (0.8-7.0) Baso % (Auto) 0.3 (0.1-1.2) % Neut # (Auto) 8.97 H (1.78-5.38) K/mm3 Lymph # (Auto) 1.42 (1.32-3.57) K/mm3 [place] # (Auto) 0.90 H (0.30-0.82) K/mm3 Eos # (Auto) 0.01 L (0.04-0.54) K/mm3 Baso # (Auto) 0.03 (0.01-0.08) K/mm3 Neutrophils % (Manual) (40-60) % Band Neutrophils % (0-10) % Lymphocytes % (Manual) (20-40) % Atypical Lymphs % % Monocytes % (Manual) (2-10) % Eosinophils % (Manual) (0.8-7.0) % Basophils % (Manual) (0.2-1.2) Platelet Estimate Plt Morphology Comment RBC Morph Comment PT (9.5-12.1) SECONDS INR APTT (24-31) SECONDS Sodium (136-145) mEq/L Potassium (3.5-5.1) mEq/L Chloride (98-107) mEq/L Carbon Dioxide (21-32) mEq/L Anion Gap (5-15) BUN (7-18) mg/dL Creatinine (0.7-1.3) mg/dL Est Cr Clr Drug Dosing mL/min Estimated GFR (MDRD) (>60) mL/min BUN/Creatinine Ratio (14-18) Glucose (80-115) mg/dL Calcium (8.5-10.1) mg/dL Magnesium (1.8-2.4) mg/dl Total Bilirubin (0.2-1.0) mg/dL AST (15-37) U/L ALT (16-63) U/L Alkaline Phosphatase (46-116) U/L Troponin I (0.00-0.056) ng/mL Total Protein (6.4-8.2) g/dl Albumin (3.4-5.0) g/dl Globulin gm/dL Albumin/Globulin Ratio (1-2) Blood Type O POSITIVE Gel Antibody Screen Negative Crossmatch See Detail 02/02/19 Range/Units 06:07 WBC (4.23-9.07) K/mm3 RBC (4.63-6.08) M/mm3 Hgb (13.7-17.5) gm/L Hct (40.1-51.0) % MCV (79.0-92.2) fl MCH (25.7-32.2) pg MCHC (32.2-35.5) g/dl RDW Std Deviation (35.1-43.9) fL Plt Count (163-337) K/mm3 MPV (9.4-12.3) fl Neut % (Auto) (34.0-67.9) % Lymph % (Auto) (21.8-53.1) % [place] % (Auto) (5.3-12.2) % Eos % (Auto) (0.8-7.0) Baso % (Auto) (0.1-1.2) % Neut # (Auto) (1.78-5.38) K/mm3 Lymph # (Auto) (1.32-3.57) K/mm3 [place] # (Auto) (0.30-0.82) K/mm3 Eos # (Auto) (0.04-0.54) K/mm3 Baso # (Auto) (0.01-0.08) K/mm3 Neutrophils % (Manual) (40-60) % Band Neutrophils % (0-10) % Lymphocytes % (Manual) (20-40) % Atypical Lymphs % % Monocytes % (Manual) (2-10) % Eosinophils % (Manual) (0.8-7.0) % Basophils % (Manual) (0.2-1.2) Platelet Estimate Plt Morphology Comment RBC Morph Comment PT (9.5-12.1) SECONDS INR APTT (24-31) SECONDS Sodium 139 (136-145) mEq/L Potassium 4.2 (3.5-5.1) mEq/L Chloride 107 (98-107) mEq/L Carbon Dioxide 20 L (21-32) mEq/L Anion Gap 16.2 H (5-15) BUN 29 H (7-18) mg/dL Creatinine 1.3 (0.7-1.3) mg/dL Est Cr Clr Drug Dosing 65.73 mL/min Estimated GFR (MDRD) 56 (>60) mL/min BUN/Creatinine Ratio 22.3 H (14-18) Glucose 112 (80-115) mg/dL Calcium 9.5 (8.5-10.1) mg/dL Magnesium (1.8-2.4) mg/dl Total Bilirubin (0.2-1.0) mg/dL AST (15-37) U/L ALT (16-63) U/L Alkaline Phosphatase (46-116) U/L Troponin I (0.00-0.056) ng/mL Total Protein (6.4-8.2) g/dl Albumin (3.4-5.0) g/dl Globulin gm/dL Albumin/Globulin Ratio (1-2) Blood Type Gel Antibody Screen Crossmatch Result Diagrams: 10/25/18 06:07 10/25/18 06:07 Consult PN Assessment/Plan Procedures: Procedures ASSAY OF BLOOD/URIC ACID (05/30/18) ASSAY OF CK (CPK) (01/23/16) ASSAY OF FREE THYROXINE (05/30/18) ASSAY THYROID STIM HORMONE (05/30/18) COMPLETE CBC AUTOMATED (07/09/18) COMPREHEN METABOLIC PANEL (05/30/18) LIPID PANEL (05/30/18) METABOLIC PANEL TOTAL CA (07/09/18) PROTHROMBIN TIME (07/09/18) ROUTINE VENIPUNCTURE (12/30/14) THROMBOPLASTIN TIME PARTIAL (07/09/18) VITAMIN D 25 HYDROXY (05/30/18) X-RAY EXAM CHEST 2 VIEWS (05/30/18) (1) Upper GI bleed SNOMED Code(s): 71456178 Code(s): K92.2 - GASTROINTESTINAL HEMORRHAGE, UNSPECIFIED Current Visit: Yes Problem List Initiated/Reviewed/Updated: Yes My Orders Last 24 Hours: My Active Orders 10/25/18 09:25 Schedule Procedure [COMM] Routine Plan: 63-year-old male with symptoms of upper GI bleed. - Proceed with a diagnostic EGD with possible biopsy and/or intervention - Continue IV Protonix - Nothing by mouth until determined that bleeding is under control - Continue current pain regimen Sarah Aguila MD General Surgery
[2018-10-25] MEDS ORDERED: Lactated Ringers 1,000 ML ONE (10:03)
--- NOTE | 2018-10-25 10:22 | PCM.OPNOTE ---
- General Post-Op/Procedure Note Date of Surgery/Procedure: 10/25/18 Operative Procedure(s): Diagnostic EGD with biopsy Findings: 1. Multiple small ulcerations with gastritis in the antrum 2. Duodenitis Pre Op Diagnosis: GI bleed with melena Post-Op Diagnosis: same Anesthesia Technique: MAC Primary Surgeon: Sarah Aguila Anesthesia Provider: Debbi Seals Pathology: 1. Gastric antrum for H. pylori. 2. Duodenum biopsy Output, Urine Amount: 0 EBL in mLs: 0 Complications: none apparent Condition: Good Free Text/Narrative:: Intake & Output 10/24/18 10/25/18 10/25/18 22:59 06:59 14:59 Intake Total 2062 Output Total 800 350 Balance 1262 -350
--- NOTE | 2018-10-25 10:26 | PCM48HPAN ---
Post Anesthesia Note - EVALUATION WITHIN 48HRS OF ANESTHETIC Vital Signs in Normal Range: Yes Patient Participated in Evaluation: Yes Respiratory Function Stable: Yes Airway Patent: Yes Cardiovascular Function Stable: Yes Hydration Status Stable: Yes Pain Control Satisfactory: Yes Nausea and Vomiting Control Satisfactory: Yes Mental Status Recovered: Yes
--- NOTE | 2018-10-25 10:27 | PCM.PRNOTE ---
- Free Text/Narrative Note: Operative Report Date of procedure: October 25, 2018 Preoperative diagnosis: . GI bleed with melena Postoperative diagnosis: . Same Surgeon: Sarah Aguila M.D. Procedure: Diagnostic EGD with biopsy Anesthesia: MAC Anesthesiologist: Debbi Seals CRNA IV fluids: 500 mL Estimated blood loss: 0 mL Specimens: 1. Gastric antrum for H. pylori. 2. Duodenum mucosa. Indication: The patient is a 62 -year-old gentleman who presented with melena to the emergency department. The patient's main complaint was melena as well as some syncopal episodes and heartburn. he was admitted to the ICU in the hospital under the hospitalist, and receive 2 units of packed red blood cells and IV fluid resuscitation. He was also started on a PPI drip. The patient was consented for an EGD with intervention. Risk of bleeding and perforation were discussed. The patient's consent was obtained Description of the procedure: The patient was taken to the endoscopy suite and placed on hemodynamic monitoring. The nurse sports team manager induced MAC anesthesia. A bite block was placed. The patient was positioned in the left lateral decubitus position. A timeout was performed. The endoscope was gently placed into the mouth to the back of the pharynx and introduced into the esophagus. The scope was gently advanced under direct visualization down to the level of the lower esophageal sphincter. The stomach was then entered. Normal rugal folds were noted. The scope was advanced into the antrum. We noted gastritis in this area with erythema and edema. There were also multiple small ulcerations. There were no active signs of bleeding at this time. We took biopsies of the gastric antrum mucosa with cold biopsy forceps to be sent for H. pylori. The pylorus was then entered and the first and second portion of the duodenum was inspected. We did note some mild erosions with no evidence of bleeding, consistent with duodenitis. There were no ulcerations in the duodenum. Biopsies were also taken in this location with cold biopsy forceps. The scope was then retroflexed in the cardia and fundus were investigated. There is no evidence of any hiatal hernia. No other abnormalities were noted. The scope was then withdrawn while inspecting the esophagus. There was esophagitis seen in the distal esophagus near the GE junction. The procedure was terminated. the patient tolerated the procedure well without any evidence of complications. Instructions: The patient will return to the floor and may resume clear liquid diet and advance as tolerated., He needs to be maintained on a PPI. Plan for reevaluation with repeat scope in approximately 4-6 weeks. Sarah Aguila MD General Surgery
[2018-10-25] MEDS: Pantoprazole 80 MG in Sodium Chloride 0.9% 100 ML IV SCH (10:51)
[2018-10-25] MEDS ORDERED: Sodium Chloride 0.9% 10 ML Syringe FLUSH PRN (10:52)
--- NOTE | 2018-10-25 13:48 | PCM.SN ---
- Free Text/Narrative Note: Patient underwent EGD w/ Biopsy for H. Pylori this AM with findings of multiple small ulcerations with gastritis in the antrum and doudenitis. Dr. Duron recommended protonix and carafate for medial treatment. She would like to see him in a month outpatient for follow up. We will go ahead and discontinue protonix drip and start clear liquid diet and advance as tolerated. If stable clinically and hemodynamically, he should be okay for discharge in the morning.
[2018-10-25] MEDS: Pantoprazole 40 MG Tab.CR PO SCH (16:49)
[2018-10-25] MEDS: Sucralfate Suspension 1 GM/10 ML Cup PO SCH (16:49)
[2018-10-26] MEDS: Pantoprazole 40 MG Tab.CR PO SCH (05:57)
[2018-10-26] MEDS: Sucralfate Suspension 1 GM/10 ML Cup PO SCH ×2 (06:00→12:03)
[2018-10-26] MEDS ORDERED: Magnesium Sulfate/Water 4 GM in Premix Bag 1 BAG IV ONE (08:30)
--- NOTE | 2018-10-26 09:16 | PCM.DCSUM1 ---
Discharge Summary - Hospital Course Free Text/Narrative:: The patient was primarily admitted for symptomatic acute anemia from upper GI bleed due to multiple peptic ulcers. He received 2 units of PRBC and 1 FFP for volume resuscitation and to improve his Hgb level. He was also put on protonix drip before he went to the unit for further treatment and stabilization. The following morning after overnight admission, he was seen by Dr. Duron and he undergone EGD with findings of multiple small gastric ulcers with gastritis in the antrum and doudenitis status post biopsy. His hospital course was uncomplicated and his Hgb remained stable at 11.8 on the day of discharge. He was advised to comply with discharge instruction and to see his PCP with repeat labs in 1 week. He was further advised to follow up with Dr. Duron in 1 month for possible repeat EGD and to discuss biopsy result. Of note, prior to discharge he received Magnesium supplement and he was sent home with prescriptions for protonix 40 mg po BID and Carafate 1g po QID. HPI Initial Comments: This is a 63 yo white male with past medical hx/o HLD, GERD, PUD, Hx/o Gout, SAUD , CKD Unknown Stage, Hx/o Renal Stone, OA, Hypothyroidism, and Pre-Diabetes who comes in for evaluation of GI complaints after passing out while he was in the bathroom yesterday. He reports feeling bloated so he went to the bathroom to have a bowel movement. However he was found unconscious on the floor with a large amount of dark bloody stool on the floor but some was found on the toilet as well. The patient however does not recall the the ensuing event. Per ED notes , he was in and out of consciousness according to his . At the time EMS arrived at his place, he was pale and diaphoretic. His initial documented blood pressure upon presentation to ED was 86/53 mmHg. Patient reports no prior similar symptoms in the past. His initial work up in ED shows a CBC remarkable for WBC of 10.47, RBC of 4, Hgb of 11.2, Hct of 34.4, Platelet of 357, and Neutrophils of 65%. His coagulation studies show PT of 12.6, INR of 1.16, and aPTT of 21. His Chemistry is significant for Cl of 108, AG of 16.5, BUN of 34, Cr of 1.6, BS of 173, Mg of 1.6, Alk Phos of 1.6, Total Protein of 6 and Albumin of 3.1. His chest x-ray shows no acute abnormal findings. Patient was admitted overnight for further work up of acute GI bleed. He is full code. Diagnosis: Stroke: No Modified Yudy Scale: No Symptoms at All Modified Yudy Scale Score: 0 - Discharge Data Discharge Date: 10/26/18 Discharge Disposition: Home, Self-Care 01 Condition: Good - Discharge Diagnosis/Problem(s) (1) Peptic ulcer disease with hemorrhage SNOMED Code(s): 69488365 ICD Code: K27.4 - CHRONIC OR UNSP PEPTIC ULCER, SITE UNSP, WITH HEMORRHAGE Status: Acute (2) Hypomagnesemia SNOMED Code(s): 407367974 ICD Code: E83.42 - HYPOMAGNESEMIA Status: Acute (3) Hypotension SNOMED Code(s): 58321815 ICD Code: I95.9 - HYPOTENSION, UNSPECIFIED Status: Resolved Qualifiers: Hypotension type: unspecified hypotension type Qualified Code(s): I95.9 - Hypotension, unspecified (4) Upper GI bleed SNOMED Code(s): 71313910 ICD Code: K92.2 - GASTROINTESTINAL HEMORRHAGE, UNSPECIFIED Status: Resolved (5) Syncope due to orthostatic hypotension SNOMED Code(s): 851932610 ICD Code: I95.1 - ORTHOSTATIC HYPOTENSION Status: Acute - Patient Summary/Data Operative Procedure(s) Performed: Diagnostic EGD with biopsy Complications: None Consults: Consultations 10/25/18 03:13 Consult to Physician [CONS] Routine Labs Pending at D/C: None Recommended Follow-up Testing/Procedures: Repeat labs on follow up appointment with PCP after discharge and possible EGD with Dr. Duron - Patient Instructions Diet: Usual Diet as Tolerated, No Alcoholic Beverages Activity: As Tolerated Driving: May Drive Today Showering/Bathing: May Shower Notify Provider of: Fever, Increased Pain, Nausea and/or Vomiting Other/Special Instructions: - Please take all new medications as directed. - Resume all home medications and routine home activities as tolerated. - Recommend follow up CBC, BMP w/ Mg in 1 week through your PCP's office. - Avoid NSAIDs and Aspirin if all possible. - Follow up with Dr. Duron in 1 month. - Call or follow up with your PCP for any questions or concerns after discharge. - Come back or seek immediate care should your symptom persists or gets worse - Discharge Plan *PRESCRIPTION DRUG MONITORING PROGRAM REVIEWED*: Not Applicable *COPY OF PRESCRIPTION DRUG MONITORING REPORT IN PATIENT SUKI: Not Applicable Prescriptions/Med Rec: Pantoprazole Sodium 40 mg PO BID #60 tablet. Sucralfate [Carafate] 1 gm PO QIDACANDBED #120 cup Home Medications: Home Meds Iron. 1 tab PO DAILY 10/24/18 [History] Levothyroxine Sodium 1 tab PO DAILY 10/24/18 [History] Rosuvastatin Calcium 5 mg PO DAILY 10/24/18 [History] Fish Oil/[place]-3 Fatty Acids [Fish Oil 1,000 MG] 1 cap PO DAILY 10/25/18 [ History] Flaxseed Oil [Flax Oil] 1 cap PO DAILY 10/25/18 [History] Pantoprazole Sodium 40 mg PO BID #60 tablet. 10/26/18 [Rx] Sucralfate [Carafate] 1 gm PO QIDACANDBED #120 cup 10/26/18 [Rx] Patient Handouts: Upper Gastrointestinal Bleeding, Peptic Ulcer, [id number] Referrals: Sarah Aguila MD [Physician] - (Follow up in 4 weeks) Maryanne Pavon PA-C [Primary Care Provider] - - Discharge Summary/Plan Comment DC Time >30 min.: No Discharge Summary/Plan Comment: Discharge to Home - General Info Date of Service: 10/26/18 Admission Dx/Problem (Free Text: Admission Diagnosis/Problem Admission Diagnosis/Problem GI bleed requiring more than 4 units of blood in 24 hours, ICU, or surgery Subjective Update: Follow Up Functional Status: Reports: Pain Controlled, Tolerating Diet, Ambulating, Urinating. Denies: New Symptoms - Review of Systems General: Denies: Fever, Weakness, Fatigue, Malaise, Chills HEENT: Reports: No Symptoms Pulmonary: Denies: Shortness of Breath, Pleuritic Chest Pain, Cough Cardiovascular: Denies: Chest Pain, Palpitations, Dyspnea on Exertion, Orthopnea , Lightheadedness Gastrointestinal: Reports: Flatus. Denies: Abdominal Pain, Constipation, Decreased Appetite, Diarrhea, Difficulty Swallowing, Hematochezia, Melena, Nausea, Vomiting Genitourinary: Reports: No Symptoms Musculoskeletal: Reports: No Symptoms Skin: Denies: Cyanosis, Jaundice, Mottled, Pallor, Bruising, Rash Neurological: Denies: Confusion, Dizziness, Syncope, Weakness, Gait Disturbance Psychiatric: Denies: Confusion, Anxiety, Agitation - Patient Data Vitals - Most Recent: Last Vital Signs Temp 36.6 C 10/26/18 09:00 Pulse 74 10/26/18 09:00 Resp 16 10/26/18 09:00 BP 136/69 10/26/18 03:00 Pulse Ox 98 10/26/18 09:00 Weight - Most Recent: 99.337 kg I&O - Last 24 hours: Intake & Output 10/25/18 10/26/18 10/26/18 22:59 06:59 14:59 Intake Total 1457 940 Output Total 400 Balance 1057 940 Lab Results - Last 24 hrs: Laboratory Results - last 24 hr 10/26/18 10/26/18 Range/Units 05:56 05:56 WBC 9.49 H (4.23-9.07) K/mm3 RBC 4.17 L (4.63-6.08) M/mm3 Hgb 11.8 L (13.7-17.5) gm/L Hct 35.4 L (40.1-51.0) % MCV 84.9 (79.0-92.2) fl MCH 28.3 (25.7-32.2) pg MCHC 33.3 (32.2-35.5) g/dl RDW Std Deviation 43.8 (35.1-43.9) fL Plt Count 280 (163-337) K/mm3 MPV 9.5 (9.4-12.3) fl Neut % (Auto) 67.1 (34.0-67.9) % Lymph % (Auto) 20.0 L (21.8-53.1) % [place] % (Auto) 10.1 (5.3-12.2) % Eos % (Auto) 2.4 (0.8-7.0) Baso % (Auto) 0.3 (0.1-1.2) % Neut # (Auto) 6.36 H (1.78-5.38) K/mm3 Lymph # (Auto) 1.90 (1.32-3.57) K/mm3 [place] # (Auto) 0.96 H (0.30-0.82) K/mm3 Eos # (Auto) 0.23 (0.04-0.54) K/mm3 Baso # (Auto) 0.03 (0.01-0.08) K/mm3 Sodium 139 (136-145) mEq/L Potassium 3.6 (3.5-5.1) mEq/L Chloride 105 (98-107) mEq/L Carbon Dioxide 24 (21-32) mEq/L Anion Gap 13.6 (5-15) BUN 19 H (7-18) mg/dL Creatinine 1.3 (0.7-1.3) mg/dL Est Cr Clr Drug Dosing 65.73 mL/min Estimated GFR (MDRD) 56 (>60) mL/min BUN/Creatinine Ratio 14.6 (14-18) Glucose 94 (80-115) mg/dL Calcium 8.3 L (8.5-10.1) mg/dL Magnesium 1.4 L (1.8-2.4) mg/dl Med Orders - Current: Current Medications Acetaminophen (Tylenol) 650 mg RECTAL Q4H PRN PRN Reason: Pain (mild 1-3) Albuterol/Ipratropium (Duoneb 3.0-0.5 Mg/3 Ml) 3 ml NEB Q4H PRN PRN Reason: Shortness Of Breath/wheezing Hydralazine HCl (Apresoline) 20 mg IVPUSH Q4H PRN PRN Reason: Hypertension Hydromorphone HCl (Dilaudid) 0.25 mg IVPUSH Q2H PRN PRN Reason: Pain (severe 7-10) Promethazine HCl 6.25 mg/ (Sodium Chloride) 50.25 mls @ 100 mls/hr IV Q6H PRN PRN Reason: Nausea/Vomiting Magnesium Sulfate 4 gm/ Premix 100 mls @ 25 mls/hr IV ONETIME ONE Stop: 10/26/18 12:29 Last Admin: 10/26/18 08:55 Dose: 25 mls/hr Lorazepam (Ativan) 0.25 mg IV Q6H PRN PRN Reason: Anxiety Magnesium Sulfate (Pharmacy To Dose - Magnesium Replacement) 0 dose .XX ASDIRECTED PRN PRN Reason: RX TO WATCH MAG Metoprolol Tartrate (Lopressor) 5 mg IVPUSH Q4H PRN PRN Reason: Tachycardia Ondansetron HCl (Zofran) 4 mg IV Q6H PRN PRN Reason: Nausea/Vomiting Pantoprazole Sodium (Protonix) 40 mg PO BIDAC [facility] Last Admin: 10/26/18 05:57 Dose: 40 mg Potassium Chloride (Pharmacy To Dose - Potassium Replacement) 0 dose .XX ASDIRECTED PRN PRN Reason: RX TO WATCH K Sodium Chloride (Saline Flush) 10 ml FLUSH ASDIRECTED PRN PRN Reason: Keep Vein Open Sucralfate (Carafate) 1 gm PO TIDAC [facility] Last Admin: 10/26/18 06:00 Dose: 1 gm Discontinued Medications Epinephrine HCl (Adrenalin) Confirm Administered Dose 2 mg .ROUTE .STK-MED ONE Stop: 10/25/18 08:52 Fentanyl (Sublimaze) Confirm Administered Dose 100 mcg .ROUTE .STK-MED ONE Stop: 10/25/18 09:12 Pantoprazole Sodium 80 mg/ (Sodium Chloride) 100 mls @ 10 mls/hr IV Q10H [facility] Last Admin: 10/25/18 10:51 Dose: 8 mg/hr, 10 mls/hr Lactated Ringer's (Ringers, Lactated) 1,000 mls @ 150 mls/hr IV ASDIRECTED [facility] Last Admin: 10/25/18 06:08 Dose: 150 mls/hr Magnesium Sulfate/Dextrose 1 (gm/ Premix) 100 mls @ 100 mls/hr IV ONETIME ONE Stop: 10/25/18 04:59 Last Admin: 10/25/18 03:53 Dose: 100 mls/hr Lidocaine HCl (Xylocaine-Mpf 1%) Confirm Administered Dose 6 mls @ as directed .ROUTE .STK-MED ONE Stop: 10/25/18 09:11 Lactated Ringer's (Ringers, Lactated) Confirm Administered Dose 1,000 mls @ as directed .ROUTE .STK-MED ONE Stop: 10/25/18 10:04 Midazolam HCl (Versed 1 Mg/Ml) Confirm Administered Dose 2 mg .ROUTE .STK-MED ONE Stop: 10/25/18 09:12 Pantoprazole Sodium (Protonix Iv) 80 mg IVPUSH BOLUS ONE Stop: 10/24/18 22:44 Last Admin: 10/24/18 22:48 Dose: 80 mg Propofol (Diprivan 20 Ml) Confirm Administered Dose 200 mg .ROUTE .STK-MED ONE Stop: 10/25/18 09:12 Sodium Chloride (Normal Saline) Confirm Administered Dose 50 ml .ROUTE .STK-MED ONE Stop: 10/25/18 08:52 - Exam General: Reports: Alert, Oriented, Cooperative, No Acute Distress HEENT: Reports: Pupils Equal, Pupils Reactive, EOMI Neck: Reports: Supple Lungs: Reports: Clear to Auscultation, Normal Respiratory Effort Cardiovascular: Reports: Regular Rate, Regular Rhythm GI/Abdominal Exam: Normal Bowel Sounds, Soft, Non-Tender, No Organomegaly, No Distention, No Abnormal Bruit (Male) Exam: Deferred Rectal (Males) Exam: Deferred Back Exam: Reports: Normal Inspection, Full Range of Motion Extremities: Normal Inspection, Normal Range of Motion, Non-Tender, No Pedal Edema, Normal Capillary Refill Skin: Reports: Warm, Dry Neurological: Reports: No New Focal Deficit, Normal Gait Psy/Mental Status: Reports: Alert, Normal Affect, Normal Mood
--- NOTE | 2018-10-26 18:27 | CR ---
Chest: Portable view of the chest was obtained. Comparison: Prior chest x-ray of 05/30/18. Heart size and mediastinum are within normal for portable technique. Lungs show no acute parenchymal change. No free air is seen. Bony structures are unremarkable. Impression: 1. Nothing acute is appreciated on portable chest x-ray. Diagnostic code #1
== END 2018-10-26 12:10 | disposition home or self-care (01) | DRG 378 ==
LOC: JD.ED 22:12 → JD.ICU 10-25 00:21
PROVIDERS: ADMIT Internal Medicine; ATTEND Internal Medicine
PROC: 0DB98ZX Excision of Duodenum, Via Natural or Artificial Opening Endoscopic, Diagnostic (ICD-10-PCS; principal; 2018-10-25)
PROC: 0DB78ZX Excision of Stomach, Pylorus, Via Natural or Artificial Opening Endoscopic, Diagnostic (ICD-10-PCS; 2018-10-25)
PROC: 30233K1 Transfusion of Nonautologous Frozen Plasma into Peripheral Vein, Percutaneous Approach (ICD-10-PCS; 2018-10-25)
PROC: 30233N1 Transfusion of Nonautologous Red Blood Cells into Peripheral Vein, Percutaneous Approach (ICD-10-PCS; 2018-10-25)
DX: K25.4 Chronic or unspecified gastric ulcer with hemorrhage (principal); D62 Acute posthemorrhagic anemia; E83.42 Hypomagnesemia; I95.1 Orthostatic hypotension; E78.5 Hyperlipidemia, unspecified; K21.9 Gastro-esophageal reflux disease without esophagitis; M10.9 Gout, unspecified; M19.90 Unspecified osteoarthritis, unspecified site; E03.9 Hypothyroidism, unspecified; K29.90 Gastroduodenitis, unspecified, without bleeding; R73.03 Prediabetes; N18.9 Chronic kidney disease, unspecified; Z87.442 Personal history of urinary calculi; Z79.899 Other long term (current) drug therapy; Z86.010 Personal history of colon polyps; Z98.890 Other specified postprocedural states
CPT/HCPCS: 36415; 36430; 71045; 71045-26; 80048; 80053; 83735; 84484; 85007; 85025; 85027; 85610; 85730; 86850; 86900; 86901; 86922; 93005; 93010; 94760; 96365; 96376; 99285; 99285-25; A9270-GY; C9113; J0171; J2001; J2250; J2704; J3010; J3475; J7030; J7120; P9016; P9017

== ENCOUNTER 2022-08-02 16:50 | Emergency (ER) | payer OTHER, MEDICARE | END 2022-08-02 19:48 | disposition home or self-care (01) | LOC: JD.ED 16:50 | DX: S16.1XXA Strain of muscle, fascia and tendon at neck level, initial encounter (principal); R51.9 Headache, unspecified; I25.10 Atherosclerotic heart disease of native coronary artery without angina pectoris; E78.00 Pure hypercholesterolemia, unspecified; Z88.1 Allergy status to other antibiotic agents; Z88.8 Allergy status to other drugs, medicaments and biological substances; Z79.899 Other long term (current) drug therapy; V53.5XXA Driver of pick-up truck or van injured in collision with car, pick-up truck or van in traffic accident, initial encounter; Y92.410 Unspecified street and highway as the place of occurrence of the external cause | CPT/HCPCS: 70450; 70450-26; 72125; 72125-26; 77080; 77080-26; 99284 ==

== ENCOUNTER 2022-08-09 11:10 | Day surgery (SDC) | payer MEDICARE, OTHER ==
[~2022-08-09 11:10] MED LIST: Acetaminophen 325 MG Tab PO SCH; EPINEPHrine 1 MG/ML SDV ONE; Morphine 8 MG, EPINEPHrine 0.3 MG, Cefuroxime 750 MG, Ketorolac 30 MG, Sodium Chloride ... PRN; Pregabalin 25 MG Cap PO SCH; Ropivacaine 0.5% 5 MG/ML 30 ML SDV ONE; oxyCODONE ER 10 MG TAB.ER PO SCH
[2022-08-09] MEDS ORDERED: ceFAZolin 2 GM Vial ONE (12:21)
[2022-08-09] MEDS ORDERED: Lidocaine 1% 2 ML ONE (12:22)
[2022-08-09] MEDS ORDERED: Propofol 200 MG/20 ML SDV ONE (12:24)
[2022-08-09] MEDS ORDERED: Midazolam 1 MG/ML 2 ML SDV ONE (12:26)
[2022-08-09] MEDS ORDERED: fentaNYL 100 MCG/2 ML SDV ONE (12:28)
[2022-08-09] MEDS ORDERED: Tranexamic Acid 1,000 MG/10 ML Vial ONE (12:35)
[2022-08-09] MEDS ORDERED: Vancomycin 1 GM SDV ONE (12:35)
[2022-08-09] MEDS ORDERED: Bupivacaine 0.25% 10 ML SDV ONE (12:35)
[2022-08-09] MEDS ORDERED: Triamcinolone Acetonide 40 MG/ML 1 ML SDV ONE (12:36)
[2022-08-09] MEDS ORDERED: Lactated Ringers 1,000 ML IV ONE (13:45)
[2022-08-09] MEDS ORDERED: Ondansetron 4 MG/2 ML SDV ONE (14:27)
[2022-08-09] MEDS ORDERED: Dexamethasone 4 MG/ML 5 ML MDV ONE (15:22)
[2022-08-09] MEDS ORDERED: HYDROmorphone 0.5 MG/0.5 ML Syringe IVPUSH PRN (15:38)
[2022-08-09] MEDS ORDERED: Ondansetron 4 MG/2 ML SDV IVPUSH PRN (15:38)
[2022-08-09] MEDS ORDERED: fentaNYL 100 MCG/2 ML SDV IVPUSH PRN (15:38)
== END 2022-08-09 19:25 | disposition home or self-care (01) ==
LOC: JD.SDS 11:10
PROVIDERS: ATTEND Orthopaedic Surgery
DX: M17.0 Bilateral primary osteoarthritis of knee (principal); D64.9 Anemia, unspecified; I25.10 Atherosclerotic heart disease of native coronary artery without angina pectoris; N18.30 Chronic kidney disease, stage 3 unspecified; E78.00 Pure hypercholesterolemia, unspecified; E03.9 Hypothyroidism, unspecified; K21.9 Gastro-esophageal reflux disease without esophagitis; I12.9 Hypertensive chronic kidney disease with stage 1 through stage 4 chronic kidney disease, or unspecified chronic kidney disease; N18.9 Chronic kidney disease, unspecified; M10.9 Gout, unspecified; E07.9 Disorder of thyroid, unspecified; G43.909 Migraine, unspecified, not intractable, without status migrainosus; Z95.1 Presence of aortocoronary bypass graft; Z79.899 Other long term (current) drug therapy; Z79.82 Long term (current) use of aspirin; Z88.1 Allergy status to other antibiotic agents; Z88.8 Allergy status to other drugs, medicaments and biological substances; Z88.3 Allergy status to other anti-infective agents; Z88.5 Allergy status to narcotic agent; Z98.890 Other specified postprocedural states; Z68.25 Body mass index [BMI] 25.0-25.9, adult
CPT/HCPCS: 0055T; 27447; 73560; 97110; 97116; 97161; A9270; C1713; C1776; J0171; J0690; J0697; J1885; J2250; J2270; J2405; J2704; J2795; J3010; J3301; J3370; J3490; J7120; 01402; 64450; 76942; J1100

== ENCOUNTER 2023-02-23 10:13 | Inpatient (IN) | payer MEDICARE, OTHER ==
[2023-02-23] MEDS ORDERED: Sodium Chloride 0.9% 1,000 ML IV ONE (11:08)
[2023-02-23 11:31] LABS: APPEARANCE,URINE CLEAR (Clear); BILIRUBIN,URINE NEGATIVE (Negative); COLOR,URINE YELLOW (Yellow); GLUCOSE,URINE NEGATIVE (Negative); KETONES,URINE NEGATIVE (Negative); LEUKOCYTE ESTERASE,URINE TRACE (Negative); NITRITE,URINE NEGATIVE (Negative); OCCULT BLOOD,URINE 1+ (Negative); PH,URINE 5.5 (5.0-8.0); PROTEIN,URINE NEGATIVE (Negative); UROBILINOGEN,URINE 0.2 (0.2-1.0)
[2023-02-23 11:33] LABS: BASOPHILS ABSOLUTE AUTO 0.04 K/mm3 (0.01-0.08); BASOPHILS PERCENT AUTO 0.5 % (0.1-1.2); EOSINOPHILS ABSOLUTE AUTO 0.14 K/mm3 (0.04-0.54); EOSINOPHILS PERCENT AUTO 1.6 (0.8-7.0); HEMATOCRIT 42.3 % (40.1-51.0); IMMATURE GRAN ABSOLUTE AUTO 0.01 K/mm3 (0.00-0.10); IMMATURE GRAN PERCENT AUTO 0.1 % (<=1.0); MEAN CORPUSCULAR HEMOGLOBIN 30.1 pg (25.7-32.2); MEAN CORPUSCULAR HGB CONC 33.1 g/dl (32.2-35.5); MEAN PLATELET VOLUME 9.6 fl (9.4-12.3); MONOCYTES ABSOLUTE AUTO 0.89 K/mm3 (0.30-0.82); MONOCYTES PERCENT AUTO 10.3 % (5.3-12.2); NEUTROPHILS ABSOLUTE AUTO 6.27 K/mm3 (1.78-5.38); NEUTROPHILS PERCENT AUTO 72.5 % (34.0-67.9); PLATELET COUNT,PLT 354 K/mm3 (163-337); RED BLOOD CELL COUNT 4.65 M/mm3 (4.63-6.08); WHITE BLOOD CELL COUNT,WBC 8.65 K/mm3 (4.23-9.07)
[2023-02-23] MEDS ORDERED: Ketorolac 15 MG/ML SDV IVPUSH ONE (11:53)
[2023-02-23 11:56] LABS: A/G RATIO 1.2 (1-2); ANION GAP 16.1 (5-15); BILIRUBIN TOTAL 0.5 mg/dL (0.2-1.0); BUN/CREATININE RATIO 18.8 (14-18); CALCIUM 9.3 mg/dL (8.5-10.1); CREATININE 1.6 mg/dL (0.7-1.3); EST CRCL DRUG DOSING (CG) 47.72 mL/min; POTASSIUM,K 4.1 mEq/L (3.5-5.1); PROTEIN TOTAL,TP 7.3 g/dl (6.4-8.2)
[2023-02-23 12:13] LABS: BACTERIA,URINE RARE /hpf (FEW); MUCUS,URINE NOT SEEN /hpf (FEW); RBC,URINE 0-5 /hpf (0-5); SQUAMOUS EPITHELIAL CELLS,UR 0-5 /hpf (0-5); WBC,URINE 0-5 /hpf (0-5)
[2023-02-23] MEDS ORDERED: Enoxaparin 40 MG/0.4 ML Syringe SUBCUT SCH (18:30)
[2023-02-23] MEDS: Sodium Chloride 0.9% 1,000 ML IV SCH (18:57)
[2023-02-23] MEDS ORDERED: Morphine 2 MG/ML SYRINGE IVPUSH PRN (19:09)
[2023-02-23] MEDS ORDERED: oxyCODONE 5 MG Tab PO PRN (19:10)
[2023-02-23] MEDS ORDERED: Tamsulosin 0.4 MG Cap.ER PO SCH (21:00)
[2023-02-23] MEDS: Metoprolol Tartrate 25 MG Tab PO SCH (22:33)
[2023-02-23] MEDS ORDERED: Lidocaine 4% 1 each Patch TOP PRN (22:43)
[2023-02-23] MEDS: Acetaminophen 325 MG Tab PO PRN (23:23)
[2023-02-24] MEDS: Acetaminophen 325 MG Tab PO PRN (05:15)
[2023-02-24] MEDS: Sodium Chloride 0.9% 1,000 ML IV SCH (05:22)
[2023-02-24] MEDS ORDERED: Levothyroxine 50 MCG Tab PO SCH (06:00)
[2023-02-24] MEDS ORDERED: Pantoprazole 40 MG Tab.CR PO SCH (06:00)
[2023-02-24] MEDS: Metoprolol Tartrate 25 MG Tab PO SCH (08:43)
[2023-02-24] MEDS ORDERED: Ezetimibe 10 MG Tab PO SCH (09:00)
[2023-02-24] MEDS ORDERED: Ferrous Sulfate 324 MG Tab.EC PO SCH (09:00)
[2023-02-24] MEDS ORDERED: FENOFIBRATE 150 MG PO SCH (09:00)
[2023-02-24] MEDS ORDERED: Fish Oil/Omega-3 Fatty Acids 1 Gm Cap PO SCH (09:00)
[2023-02-25] MEDS ORDERED: Rosuvastatin 10 MG Tab PO SCH (09:00)
== END 2023-02-24 12:05 | disposition home or self-care (01) | DRG 694 ==
LOC: JD.ED 10:13 → JD.MS 17:01
PROVIDERS: ADMIT Hospitalist; ATTEND Hospitalist
DX: N20.2 Calculus of kidney with calculus of ureter (principal); R79.89 Other specified abnormal findings of blood chemistry; I44.0 Atrioventricular block, first degree; R00.1 Bradycardia, unspecified; N20.0 Calculus of kidney; N17.9 Acute kidney failure, unspecified; I25.10 Atherosclerotic heart disease of native coronary artery without angina pectoris; K57.90 Diverticulosis of intestine, part unspecified, without perforation or abscess without bleeding; N18.9 Chronic kidney disease, unspecified; Z79.82 Long term (current) use of aspirin; Z79.899 Other long term (current) drug therapy; N40.0 Benign prostatic hyperplasia without lower urinary tract symptoms; Z86.73 Personal history of transient ischemic attack (TIA), and cerebral infarction without residual deficits; Z87.440 Personal history of urinary (tract) infections; N20.9 Urinary calculus, unspecified; E78.00 Pure hypercholesterolemia, unspecified; K21.9 Gastro-esophageal reflux disease without esophagitis; M10.9 Gout, unspecified; M19.90 Unspecified osteoarthritis, unspecified site; G43.909 Migraine, unspecified, not intractable, without status migrainosus; E03.9 Hypothyroidism, unspecified; D75.839 Thrombocytosis, unspecified; Z98.49 Cataract extraction status, unspecified eye; I25.2 Old myocardial infarction; Z98.890 Other specified postprocedural states; Z95.1 Presence of aortocoronary bypass graft; Z88.5 Allergy status to narcotic agent; Z86.010 Personal history of colon polyps; Z88.8 Allergy status to other drugs, medicaments and biological substances
CPT/HCPCS: 36415; 74176; 80053; 81001; 84484 ×2; 85025; 87086; 93005 ×2; J1885; J7030; 93010; 99222; 99239; 99285; A9270-GY; J1650